=== PATIENT | male | born 1955 | race Caucasian/White ===

== ENCOUNTER 2018-10-04 05:22 | Emergency (ER) | payer OTHER, MEDICARE ==
[~2018-10-04] VITALS: Ht 172.7 cm; Wt 111.1 kg
[2018-10-04] MEDS ORDERED: CRESTOR10 MG PO (05:47)
[2018-10-04] MEDS ORDERED: LIDOCAINE 2% 20 ML VIAL. ONE (05:52)
[2018-10-04] MEDS ORDERED: MORPHINE SULFATE 4 MG/ML DISP.SYRIN. ONE (05:53)
[2018-10-04] MEDS ORDERED: HYDR1TAB12 PO (06:07)
[2018-10-04] MEDS ORDERED: IBUP800T19 PO (06:07)
--- NOTE | 2018-10-04 06:11 | PHYS DOC ---
Adult General Chief Complaint Chief Complaint shoulder pain HPI HPI 63 years old presented to the emergency department after a fall complaining of left shoulder pain upon arrival shoulder looked deformed Review of Systems Review of Systems Constitutional: Denies fever or chills [] Eyes: Denies change in visual acuity, redness, or eye pain [] HENT: Denies nasal congestion or sore throat [] Respiratory: Denies cough or shortness of breath [] Cardiovascular: No additional information not addressed in HPI [] GI: Denies abdominal pain, nausea, vomiting, bloody stools or diarrhea [] : Denies dysuria or hematuria [] Musculoskeletal: Denies back pain Integument: Denies rash or skin lesions [] Neurologic: Denies headache, focal weakness or sensory changes [] Endocrine: Denies polyuria or polydipsia [] All other systems were reviewed and found to be within normal limits, except as documented in this note. Current Medications Current Medications Current Medications Medications (Trade) Dose Ordered Sig/Lalo Start Time Stop Time Status Last Admin Dose Admin Lidocaine HCl 20 ml STK-MED ONCE 10/04/18 05:52 10/04/18 05:53 DC Morphine Sulfate (Morphine 4mg Syringe) 4 mg STK-MED ONCE 10/04/18 05:53 10/04/18 05:54 DC Allergies Allergies Allergies Coded Allergies Type Severity Reaction Last Updated Verified Penicillins Allergy Severe Hives 10/04/18 Yes Physical Exam Physical Exam Constitutional: Well developed, well nourished, no acute distress, non-toxic appearance. [] HENT: Normocephalic, atraumatic, bilateral external ears normal, oropharynx moist, no oral exudates, nose normal. [] Eyes: PERRLA, EOMI, conjunctiva normal, no discharge. [] Neck: Normal range of motion, no tenderness, supple, no stridor. [] Cardiovascular:Heart rate regular rhythm, no murmur [] Lungs & Thorax: Bilateral breath sounds clear to auscultation [] Abdomen: Bowel sounds normal, soft, no tenderness, no masses, no pulsatile masses. [] Skin: Warm, dry, no erythema, no rash. [] Back: No tenderness, no CVA tenderness. [] Extremities: No tenderness, no cyanosis, no clubbing, dislocated left shoulder Neurologic: Alert and oriented X 3, normal motor function, normal sensory function, no focal deficits noted. [] Psychologic: Affect normal, judgement normal, mood normal. [] Current Patient Data Vital Signs Vital Signs Date Time Temp Pulse Resp B/P (MAP) Pulse Ox O2 Delivery O2 Flow Rate FiO2 10/04/18 05:25 98.1 53 18 98 Room Air EKG EKG [] Radiology/Procedures Radiology/Procedures [] Course & Med Decision Making Course & Med Decision Making Dislocated left shoulder 10 mL of 2% lidocaine injected in that left shoulder reduced without any complication [] Final Impression Final Impression [] Problems: (1) Dislocation of left shoulder joint Qualifiers: Qualified Codes: S43.005A - Unspecified dislocation of left shoulder joint, initial encounter Dragon Disclaimer Dragon Disclaimer This electronic medical record was generated, in whole or in part, using a voice recognition dictation system. ELSIE HENRIQUEZ MD Oct 04, 2018 06:11
[2018-10-04] MEDS ORDERED: LIDOCAINE 2% 20 ML VIAL. IJ ONE (06:30)
[2018-10-04] MEDS ORDERED: MORPHINE SULFATE 4 MG/ML DISP.SYRIN. IV ONE (06:30)
[2018-10-04 06:41] VITALS: BP 129/84
--- NOTE | 2018-10-04 06:48 | RAD ---
SHOULDER 2+V LEFT Clinical Indication: left shoulder injury, fall, pain Comparison: None. Findings: There is anterior subcoracoid humeral head dislocation in relation to the glenoid. No acute fracture is identified. Acromioclavicular joint is intact. The left upper lung is clear. Soft tissues unremarkable. IMPRESSION: Anterior subcoracoid shoulder dislocation. Electronically signed by: Michael Avalos MD (10/04/2018 6:44 AM) [id number]
--- NOTE | 2018-10-04 06:49 | RAD ---
SHOULDER 2+V LEFT Clinical Indication: post reduction Comparison: Left shoulder, 2 views, earlier same day. Impression: Successful reduction of anterior subcoracoid dislocation. Acute traumatic Hill-Sachs fracture is not excluded. Left lung is clear. Electronically signed by: Michael Avalos MD (10/04/2018 6:46 AM) [facility]
== END 2018-10-04 06:52 | disposition home or self-care (01) ==
LOC: ER 05:22
DX: S43.085A Other dislocation of left shoulder joint, initial encounter (principal); Z88.0 Allergy status to penicillin; W01.0XXA Fall on same level from slipping, tripping and stumbling without subsequent striking against object, initial encounter; Y93.K1 Activity, walking an animal; Y92.89 Other specified places as the place of occurrence of the external cause; Y99.8 Other external cause status
CPT/HCPCS: 23650; 73030; 96374; 99285; J2270; J2001

== ENCOUNTER → 2021-04-10 | Outpatient (CLI) | payer MEDICARE, OTHER ==
[~2021-04-10] MED LIST: CRESTOR10 MG PO; HYDR1TAB13 PO; IBUP800T19 PO
--- NOTE | 2021-04-10 16:38 | RAD ---
Indications: Left scapular pain. Mass of the left shoulder region. Three-view left shoulder study: No acute fracture or dislocation or lytic process is seen. There is a deformity of the lateral aspect of the greater tubercle consistent with an old healed fracture here. No AC joint separation is seen. 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 No signif icant joint space narrowing or spurring of the left glenohumeral joint is seen. However, there is a s mall traction spur of the inferior medial aspect of the humeral head. 2 view study of the left scapula: No fracture or lytic process is seen. No soft tissue calcification is evident. IMPRESSION: There is a deformity of the lateral aspect of the greater tubercle consistent with an old healed fracture. This could be related to the previous glenohumeral joint dislocation as seen on Sep i.e. Hill-Sachs deformity. Otherwise no acute osseous abnormality is seen. With regard to any mass in the left shoulder, MRI study may be helpful for further evaluation. Evaluation for sof t tissue mass is difficult with CR radiography. Electronically signed by: Liam Quinteros MD (04/10/2021 4:35 PM) [id number]
== END ==
LOC: RAD 15:15
PROVIDERS: ATTEND Family Medicine
DX: M21.822 Other specified acquired deformities of left upper arm (principal)
CPT/HCPCS: 73010; 73030

== ENCOUNTER 2021-06-06 23:52 | Emergency (ER) | payer MEDICARE, OTHER ==
[~2021-06-06] VITALS: Ht 172.7 cm; Wt 116.0 kg
--- NOTE | 2021-06-07 00:05 | PHYS DOC ---
Past History Past Medical History: Cancer, High Cholesterol Past Surgical History: No Surgical History Alcohol Use: Occasionally Drug Use: None General Adult HPI: HPI: ".. I just got chemo.. for my Lt. shoulder today...." Patient is a 65 year old male who presents with above hx and complaints of shakes , dizzy, chills and fever. Patient currently under chemotherapy on Tuesdays and at . 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 The patient follows with Dr. Walker at for oncology treatment. No recent travel. No specific ill contacts. Has received Covid vaccination. Patient has been compliant with meds. Pt. primary is Dr. Dunbar Follows with Dr Dunbar as primary. Review of Systems: Review of Systems: Constitutional: Complains of fever or chills. Complains of malaise Eyes: Denies change in visual acuity HENT: Denies nasal congestion or sore throat Respiratory: Denies cough or shortness of breath Cardiovascular: Denies chest pain or edema GI: Denies abdominal pain, nausea, vomiting, bloody stools or diarrhea : Denies dysuria Musculoskeletal: Denies back pain or joint pain Integument: Denies rash Neurologic: Denies headache, focal weakness or sensory changes. Complains of dizziness Endocrine: Denies polyuria or polydipsia Lymphatic: Denies swollen glands Psychiatric: Denies depression or anxiety Family History: Family History: Noncontributory to presentation Current Medications: Current Meds: See nursing for home meds Allergies: Allergies: Allergies Coded Allergies Type Severity Reaction Last Updated Verified Penicillins Allergy Severe Hives 10/04/18 Yes Physical Exam: PE: Constitutional: Moderate acute distress, non-toxic appearance. [] HENT: Normocephalic, atraumatic, bilateral external ears normal, oropharynx moist, no oral exudates, nose normal. [] Eyes: PERRLA, EOMI, conjunctiva normal, no discharge. [] Neck: Normal range of motion, no tenderness, supple, no stridor. [] Cardiovascular: Tachycardia heart rate regular rhythm, no murmur [] Lungs & Thorax: Bilateral breath sounds equal at apex with some basilar crackles on auscultation [] port on right chest wall Abdomen: Bowel sounds normal, soft, no tenderness, no masses, no pulsatile masses. [] Skin: Warm, dry, no erythema, no rash. [] Back: No tenderness, no CVA tenderness. [] Extremities: No tenderness, no cyanosis, no clubbing, ROM intact, no edema. [] Mass on left shoulder. No cording appreciated Neurologic: Alert and oriented X 3, normal motor function, normal sensory function, no focal deficits noted. [] Psychologic: Affect anxious, judgement normal, mood normal. [] EKG: EKG: My interpretation EKG shows a sinus tachycardia 120 bpm. Occasional PAC. No findings acute STEMI of contralateral changes. EKG time was 00 45 minutes [] My interpretation EKG #2 shows a sinus rhythm at 100 bpm. No acute morphology. Time of EKG is 004 3 minutes. Radiology/Procedures: Radiology/Procedures: My interpretation of chest x-ray shows some basilar linear atelectasis. Report on right. Mass in left shoulder. [] Heart Score: C/O Chest Pain: No HEART Score for Chest Pain: HEART Score for Chest Pain Response (Comments) Value History Slighlty/Non-Suspicious 0 ECG Normal 0 Age > 65 2 Risk Factors 1 or 2 Risk Factors 1 Troponin < Normal Limit 0 Total 3 Risk Factors: Risk Factors: DM, Current or recent (<one month) smoker, HTN, HLP, family h istory of CAD, obesity. Risk Scores: Score 0 - 3: 2.5% MACE over next 6 weeks - Discharge Home Score 4 - 6: 20.3% MACE over next 6 weeks - Admit for Clinical Observation Score 7 - 10: 72.7% MACE over next 6 weeks - Early Invasive Strategies Course & Med Decision Making: Course & Med Decision Making Pertinent Labs and Imaging studies reviewed. (See chart for details) Discussed presentation, testing and tx. plan with transfer at 0200 hrs. They are reviewing his file and will call back. transfer called back, and I discussed presentation, testing and tx plan with Dr. Walker- his oncology physician at . Advised addition 2 liters of fluid and 50 mg of methylene blue IV. Patient to call in morning for follow-up. Pt. ambulatory at discharge and reports he feels much better. O530 hrs Will continue with Cipro 500 bid. Pt. keep follow up with oncology today. Impression: 1. Fever 2. On Chemotherapy- Doxorubicin, Ifosfamide, [place], and Pegfilgrastim protocol.- For left shoulder pleomorphic sarcoma. 3. Elevated crp= 209 4. Malnutrition- Albumin 1.7 5. Anemia Hgb. 10.7 microcytic-77 6. Thrombocytosis 424 7. Hypomagnesium 1.7 [] Dragon Disclaimer: Dragsaranya Disclaimer: This electronic medical record was generated, in whole or in part, using a voice recognition dictation system. Departure Departure: Referrals: SHIRA DUNBAR MD (PCP) Scripts Ciprofloxacin (CIPRO) 500 Mg/[address] [facility].rec 500 MG PO BID for fever for 7 Days, MISC Prov: BASILIO NEWTON MD 06/07/21 [employer] Disclaimer This chart was dictated in whole or in part using Voice Recognition software in a busy, high-work load, and often noisy Emergency Department environment. It may contain unintended and wholly unrecognized errors or omissions. BASILIO NEWTON MD Jun 07, 2021 00:05
[2021-06-07] MEDS ORDERED: IV RINGERS SOLUTION,LACTATED 1,000 ML IV SCH (00:15)
[2021-06-07] MEDS ORDERED: VANCOMYCIN 1 GM in IV NORMAL SALINE 250ML 250 ML IV ONE (00:15)
[2021-06-07] MEDS ORDERED: VANCOMYCIN 1 GM VIAL. ONE (00:39)
[2021-06-07] MEDS ORDERED: IV NORMAL SALINE 250ML 250 ML ONE (00:39)
[2021-06-07] MEDS ORDERED: ACETAMINOPHEN 500 MG TABLET PO ONE (01:30)
[2021-06-07 01:35] LABS: BASO # 0.1 x10^3/uL (0.0-0.2); BASO % 1 % (0-3); EOS % 0 % (0-3); HEMATOCRIT 32.1 % (39.0-53.0); HEMOGLOBIN 10.7 g/dL (13.0-17.5); LYMPH % 10 % (24-48); MEAN CORPUSCULAR HEMOGLOBIN 26 pg (25-35); MEAN CORPUSCULAR HGB CONC 33 g/dL (31-37); MEAN CORPUSCULAR VOLUME 77 fL (79-100); MONO # 0.3 x10^3/uL (0.0-1.1); MONO % 3 % (0-9); NEUT # 8.2 x10^3uL (1.8-7.7); NEUT % 86 % (31-73); PLATELET COUNT 424 x10^3/uL (140-400); RED BLOOD COUNT 4.19 x10^6/uL (4.30-5.70); WHITE BLOOD COUNT 9.5 x10^3/uL (4.0-11.0)
[2021-06-07 01:42] LABS: CALCIUM 8.4 mg/dL (8.5-10.1); CREATININE 0.9 mg/dL (0.7-1.3); GFR 84.2; POTASSIUM 4.2 mmol/L (3.5-5.1)
[2021-06-07] MEDS ORDERED: levoFLOXacin 500 MG TABLET PO ONE (01:45)
[2021-06-07 01:54] LABS: INFLUENZA A PATIENT NEGATIVE (NEGATIVE); INFLUENZA B PATIENT NEGATIVE (NEGATIVE)
[2021-06-07 01:55] LABS: ALBUMIN 1.7 g/dL (3.4-5.0); DIRECT BILIRUBIN 0.1 mg/dL (0.0-0.2); MAGNESIUM 1.7 mg/dL (1.8-2.4); TOTAL BILIRUBIN 0.4 mg/dL (0.2-1.0); TOTAL PROTEIN 5.4 g/dL (6.4-8.2)
[2021-06-07] MEDS ORDERED: IV RINGERS SOLUTION,LACTATED 1,000 ML IV ONE (02:45)
[2021-06-07] MEDS ORDERED: IV NORMAL SALINE 1,000ML 1,000 ML IV ONE (03:00)
[2021-06-07] MEDS ORDERED: METHYLENE BLUE 0.5% IJ ONE (03:00)
[2021-06-07] MEDS ORDERED: IV DEXTROSE 5% 50 ML IV ONE (03:00)
[2021-06-07 03:05] LABS: BILIRUBIN,URINE NEG (NEG); CLARITY,URINE CLEAR; COLOR,URINE YELLOW; GLUCOSE,URINE NEG (NEG); NITRITE,URINE NEG (NEG); UROBILINOGEN,URINE 0.2 mg/dL (0.2 mg/dL)
[2021-06-07 03:06] LABS: BACTERIA,URINE 0 /HPF (0-FEW)
[2021-06-07] MEDS ORDERED: MAGNESIUM SULFATE 1GM 100 ML IV ONE (03:30)
[2021-06-07 05:00] VITALS: BP 147/81
--- NOTE | 2021-06-07 05:13 | EKG ---
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
--- NOTE | 2021-06-07 05:13 | EKG ---
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
[2021-06-07] MEDS ORDERED: CIPR500S2 PO (05:37)
--- NOTE | 2021-06-07 06:21 | RAD ---
EXAM: CHEST 1 VIEW History: Fever COMPARISON: None available. TECHNIQUE: Single portable radiograph of the chest FINDINGS: The cardiac silhouette is unremarkable. Right-sided central line identified. Mild bibasila r lung airspace opacities likely atelectasis or infiltrates. IMPRESSION: Mild bibasilar lung airspace opacities likely atelectasis or infiltrates. Electronically signed by: Koko Zhang MD (06/07/2021 6:19 AM) [id number]
[2021-06-08] MEDS ORDERED: CEFP200T PO (14:14)
== END 2021-06-07 05:41 | disposition home or self-care (01) ==
LOC: ER 23:52
DX: C76.42 Malignant neoplasm of left upper limb (principal); R79.82 Elevated C-reactive protein (CRP); E46 Unspecified protein-calorie malnutrition; Z68.38 Body mass index [BMI] 38.0-38.9, adult; D64.9 Anemia, unspecified; D47.3 Essential (hemorrhagic) thrombocythemia; E83.42 Hypomagnesemia; E78.00 Pure hypercholesterolemia, unspecified; Z20.822 Contact with and (suspected) exposure to COVID-19; Z88.0 Allergy status to penicillin
CPT/HCPCS: 36415; 71045; 80048; 80076; 81001; 82550; 83605; 83690; 83735; 83880; 84443; 84484; 85025; 86140; 87040; 87205; 87804; 93005; 96361; 96365; 96367; 99285; C9803; J3370; J3475; J7030; J7050; J7120; U0003

== ENCOUNTER 2021-06-08 09:35 | Emergency (ER) | payer MEDICARE, OTHER ==
[~2021-06-08] VITALS: Ht 172.7 cm; Wt 118.8 kg
[~2021-06-08 09:35] MED LIST changes: +CIPR500S2 PO
[2021-06-08 10:09] LABS: BASO # 0.2 x10^3/uL (0.0-0.2); BASO % 1 % (0-3); EOS % 0 % (0-3); HEMATOCRIT 29.8 % (39.0-53.0); HEMOGLOBIN 9.6 g/dL (13.0-17.5); LYMPH # 0.6 x10^3/uL (1.0-4.8); LYMPH % 2 % (24-48); MEAN CORPUSCULAR HEMOGLOBIN 25 pg (25-35); MEAN CORPUSCULAR HGB CONC 32 g/dL (31-37); MEAN CORPUSCULAR VOLUME 77 fL (79-100); MONO # 0.1 x10^3/uL (0.0-1.1); MONO % 0 % (0-9); NEUT # 26.6 x10^3uL (1.8-7.7); NEUT % 97 % (31-73); PLATELET COUNT 393 x10^3/uL (140-400); RED BLOOD COUNT 3.88 x10^6/uL (4.30-5.70); WHITE BLOOD COUNT 27.5 x10^3/uL (4.0-11.0)
--- NOTE | 2021-06-08 11:16 | EKG ---
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
[2021-06-08 11:31] LABS: CALCIUM 8.8 mg/dL (8.5-10.1); GFR 74.5; POTASSIUM 3.4 mmol/L (3.5-5.1)
[2021-06-08 11:41] LABS: ALBUMIN 1.6 g/dL (3.4-5.0); ALBUMIN/GLOBULIN RATIO 0.3 (1.0-1.7); MAGNESIUM 2.1 mg/dL (1.8-2.4); PHOSPHORUS 2.4 mg/dL (2.6-4.7); TOTAL BILIRUBIN 0.5 mg/dL (0.2-1.0); TOTAL PROTEIN 6.7 g/dL (6.4-8.2)
[2021-06-08 11:56] LABS: BILIRUBIN,URINE NEG (NEG); CLARITY,URINE CLEAR; COLOR,URINE YELLOW; GLUCOSE,URINE NEG (NEG); NITRITE,URINE NEG (NEG); UROBILINOGEN,URINE 0.2 mg/dL (0.2 mg/dL)
--- NOTE | 2021-06-08 11:56 | PHYS DOC ---
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 Tinajero (cardiac rehabilitation specialist for pts' oncologist, Dr. Walker), concern for 1 of 2+ blood cultures growing staph in clusters. Patient was seen in the ED 2 days ago, June 06, temperature 100, with chest x-ray showing questionable infiltrates. ED physician spoke to Dr. Walker who recommended IV methylene blue, concern for chemo adverse effect from ifosfamide toxicity. Patient was prescribed Cipro 500 twice daily but has not refilled the medication. No neutropenia on 06/06. In ED patient with no active complaints, frequently asking nurse if he can be discharged. Review of Systems: Review of Systems: Constitutional: Denies fever or chills Eyes: Denies change in visual acuity HENT: Denies nasal congestion or sore throat Respiratory: Denies cough or shortness of breath Cardiovascular: Denies chest pain or edema GI: Denies abdominal pain, nausea, vomiting, bloody stools or diarrhea : Denies dysuria or hematuria Musculoskeletal: Denies back pain or joint pain Integument: Denies rash or diaphoresis Neurologic: Denies headache or neck stiffness Endocrine: Denies polyuria or polydipsia Lymphatic: Denies swollen glands Psychiatric: Denies depression or anxiety Allergies: Allergies: Allergies Coded Allergies Type Severity Reaction Last Updated Verified Penicillins Allergy Severe Hives 06/07/21 Yes Physical Exam: PE: Constitutional: Well developed, well nourished, no acute distress, non-toxic appearance, sleeping comfortably in ED stretcher HENT: Normocephalic, atraumatic, right upper chest wall Acosta catheter in place with no purulent drainage, normal-appearing swelling skin Eyes: EOMI, conjunctiva normal, no discharge. Neck: Normal range of motion, supple, Cardiovascular: S1/2 present, regular rhythm Lungs & Thorax: Speaking in full sentences, bilateral equal chest rise, no tachypnea or increased work of breathing Abdomen: soft, no tenderness, Skin: Warm, dry, no erythema, no rash. [] Back: No tenderness, no CVA tenderness. [] Extremities: No tenderness, no cyanosis, Neurologic: Alert and oriented X 3, normal motor function, normal sensory function, no focal deficits noted. [] Psychologic: Affect normal, judgement normal, mood normal. [] Current Patient Data: Labs: Laboratory Tests Test 06/08/21 09:56 06/08/21 10:56 White Blood Count 27.5 x10^3/uL (4.0-11.0) H Red Blood Count 3.88 x10^6/uL (4.30-5.70) L Hemoglobin 9.6 g/dL (13.0-17.5) L Hematocrit 29.8 % (39.0-53.0) L Mean Corpuscular Volume 77 fL (79-100) L Mean Corpuscular Hemoglobin 25 pg (25-35) Mean Corpuscular Hemoglobin Concent 32 g/dL (31-37) Red Cell Distribution Width 16.0 % (11.5-14.5) H Platelet Count 393 x10^3/uL (140-400) Neutrophils (%) (Auto) 97 % (31-73) H Lymphocytes (%) (Auto) 2 % (24-48) L Monocytes (%) (Auto) 0 % (0-9) Eosinophils (%) (Auto) 0 % (0-3) Basophils (%) (Auto) 1 % (0-3) Neutrophils # (Auto) 26.6 x10^3uL (1.8-7.7) H Lymphocytes # (Auto) 0.6 x10^3/uL (1.0-4.8) L Monocytes # (Auto) 0.1 x10^3/uL (0.0-1.1) Eosinophils # (Auto) 0.0 x10^3/uL (0.0-0.7) Basophils # (Auto) 0.2 x10^3/uL (0.0-0.2) Platelet Estimate Pending Sodium Level 134 mmol/L (136-145) L Potassium Level 3.4 mmol/L (3.5-5.1) L Chloride Level 101 mmol/L (98-107) Carbon Dioxide Level 23 mmol/L (21-32) Anion Gap 10 (6-14) Blood Urea Nitrogen 21 mg/dL (8-26) Creatinine 1.0 mg/dL (0.7-1.3) Estimated GFR (Cockcroft-Gault) 74.5 BUN/Creatinine Ratio 21 (6-20) H Glucose Level 106 mg/dL (70-99) H Lactic Acid Level 1.2 mmol/L (0.4-2.0) Calcium Level 8.8 mg/dL (8.5-10.1) Phosphorus Level 2.4 mg/dL (2.6-4.7) L Magnesium Level 2.1 mg/dL (1.8-2.4) Total Bilirubin 0.5 mg/dL (0.2-1.0) Aspartate Amino Transferase (AST) 17 U/L (15-37) Alanine Aminotransferase (ALT) 20 U/L (16-63) Alkaline Phosphatase 125 U/L (46-116) H Troponin I Quantitative < 0.017 ng/mL (0-0.055) Total Protein 6.7 g/dL (6.4-8.2) Albumin 1.6 g/dL (3.4-5.0) L Albumin/Globulin Ratio 0.3 (1.0-1.7) L Lipase 64 U/L (73-393) L Vital Signs: Vital Signs Date Time Temp Pulse Resp B/P (MAP) Pulse Ox O2 Delivery O2 Flow Rate FiO2 06/08/21 10:24 109 172/86 98 06/08/21 10:18 20 Room Air EKG: EKG: [] Radiology/Procedures: Radiology/Procedures: IMAGING REPORT Signed PATIENT: BRETT RODRIGUEZ ACCOUNT: [id number] : 1955 LOCATION: ER AGE: 65 SEX: M EXAM STATUS: REG ER ORD. PHYSICIAN: MERCEDEZ STODDARD DO REASON: infiltrate? PROCEDURE: CT CHEST WO CONTRAST EXAMINATION: CT Chest Without IV contrast. INDICATION:65 years, Male, infiltrates. COMPARISON: None. TECHNIQUE: Spiral CT was obtained from the jugular notch through the posterior costophrenic recess. 3-D MIPS, sagittal and coronal reformats were obtained. Exposure: One or more of the following individualized dose reduction techniques were utilized for this examination: 1. Automated exposure control 2. Adjustment of the mA and/or kV according to patient size 3. Use of iterative reconstruction technique. FINDINGS: LUNGS/PLEURA: Central airways are patent. Dependent subsegmental atelectasis versus scarring. Scattered pleural-based scarring in the posterior upper lobes. No focal consolidation, pleural effusion or pneumothorax. No suspicious pulmona ry nodule.. MEDIASTINUM: No pathologic mediastinal or hilar adenopathy. The thoracic aorta and pulmonary arteries are normal in caliber. The heart is normal in size. No pericardial effusion. Mild calcified coronary atherosclerosis. There is a 1.3 cm right thyroid nodule. Esophagus is unremarkable. Right IJ central venous catheter terminates in the distal SVC. AXILLA/SOFT TISSUE: No supraclavicular or axillary adenopathy. There is a large heterogeneous soft tissue mass along the left lateral chest wall extends from the axilla to the level of the posterior ninth rib, measures 20.8 x 14.1 cm. This mass is seen on radiograph dated 04/10/2021 UPPER ABDOMEN: Small hiatal hernia. BONES: No evidence of acute fractures or aggressive osseous lesions. IMPRESSION: 1. No evidence of focal consolidation. 2. Heterogeneous 20 cm soft tissue mass along the left lateral chest wall soft tissue extends from the axilla to the level of posterior ninth rib, suggesting of hematoma. Other differential consideration is soft tissue neoplasm. This lesion is seen on radiograph dated 04/10/2021. Clinical correlation is advised and recommend ultrasound to assess for internal vascularity. 3. There is a 1.3 cm right thyroid nodule. Incidental thyroid nodule measuring 1 - 1.4 cm in patient age >=35. Further evaluation with thyroid ultrasound could be performed at discretion of ordering provider. Recommendation for patients with normal life expectancy per ACR White Paper on incidental thyroid nodules (JACR 2015 ;12:143-150). Electronically signed by: Felice Burks MD (06/08/2021 12:44 PM) [id number] DICTATED AND SIGNED BY: FELICE BURKS MD DATE: 06/08/21 1231 CC: SHIRA TAVERAS MD; MERCEDEZ STODDARD DO ~MTH0 0 Heart Score: C/O Chest Pain: No Risk Factors: Risk Factors: DM, Current or recent (<one month) smoker, HTN, HLP, family history of CAD, obesity. Risk Scores: Score 0 - 3: 2.5% MACE over next 6 weeks - Discharge Home Score 4 - 6: 20.3% MACE over next 6 weeks - Admit for Clinical Observation Score 7 - 10: 72.7% MACE over next 6 weeks - Early Invasive Strategies Course & Med Decision Making: Course & Med Decision Making Pertinent Labs and Imaging studies reviewed. (See chart for details) Concern for fever 2 todays ago, pt not neutropenic but on chemo with recent Neupogen injection which could explain the elevation. Pt afebrile and well appearing, no signs/sxs of infection. CT performed- no pneumonia. 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 I spoke with Dr. Jim (cardiac rehabilitation specialist for Dr. Walker) and later spoke to Dr. Walker. 2 cultures were drawn from Acosta port site 2 days ago, wound culture growing gram-positive cocci in cluster. Today wound culture was drawn from port site and the culture was drawn from peripheral site. Dr. Walker recommend patient continue antibiotics for gram-positive coverage (vanco and rocephin given in ED). No allergic reaction to Rocephin in ED. Dr. Walker recommends discharge home (I agree) given well-appearing exam. Pt reliable and agrees with strict ED return precautions were given for flulike symptoms, fever, chills, rigors or diaphoresis-daughter listening on cell phone and states "See, you have to come back if you feel worse." Pt understands urgent ED return to patient receiving a call backs regarding lab results. Pt also understands if repeat blood culture from Acosta catheter is positive, catheter will need to be removed, per Dr. Walker. Encouraged urgent outpatient follow-up with PMD and oncology on Thursday. Life-threatening processes were considered but are low suspicion at this time, given history, physical exam and ED workup. Pt was educated on all prescription medications and adverse effects. All patient's questions were answered and pt was stable at time of discharge. Life/limb-threatening differential includes but is not limited to, surgical abdomen (appendicitis, cholecystitis, diverticulitis, inflammatory bowel dise ase, abscess, perforation), meningitis, encephalitis, Venkata's angina, endocarditis, myocarditis, life-threatening rash (necrotizing fasciitis), gynecologic and urologic emergencies (endometritis, ovarian/testicular torsion, TOA, obstructive nephropathy, prostatitis), head and neck abscess, infection concerning for sepsis or shock, or respiratory failure. I have spoken with the patient and/or caregivers. I explained the patient's condition, diagnoses and treatment plan based on the information available to me at this time. I have answered the patient and/or caregiver's questions and addressed any concerns. The patient and/or caregivers have a good understanding of patient's diagnosis, condition and treatment plan as can be expected at this point. Vital signs have been stable. Patient's condition is stable and appropriate for discharge from the emergency department. Patient will pursue further outpatient evaluation with primary care physician or other designated or consulting physician as outlined in the discharge instructions. The patient and/or caregivers are agreeable to this plan of care and follow-up instructions have been explained in detail. The patient and/or caregivers have received these instructions in written form and have expressed an understanding of the discharge instructions. The patient and/or caregivers are aware that any significant change of condition or worsening of symptoms should prompt immediate return to this or the closest emergency department or call to 911. [employer] Disclaimer: Dragsaranya Disclaimer: This electronic medical record was generated, in whole or in part, using a voice recognition dictation system. Departure Departure: Impression: Primary Impression: Positive blood culture Additional Impression: Afebrile Disposition: HOME / SELF CARE / HOMELESS Condition: STABLE Referrals: SHIRA TAVERAS MD (PCP) In 1 to 2 days for reevaluation, return to ER immediately if you develop any fever, chills or flulike symptoms Patient Instructions: Bacteremia, Blood Culture Additional Instructions: FOLLOW UP WITH DR. WALKER ON THURSDAY Scripts Cefpodoxime Proxetil (CEFPODOXIME PROXETIL) 200 Mg Tablet 1 TAB PO BID for POSITIVE BLOOD CULTURE for 7 Days, #14 TAB TAKE UNTIL NEGATIVE BLOOD CULTURES ARE RESULTED Prov: MERCEDEZ STODDARD DO 06/08/21 MERCEDEZ STODDARD DO Jun 08, 2021 11:56
[2021-06-08 11:57] LABS: BACTERIA,URINE 0 /HPF (0-FEW); GRANULAR CASTS,URINE FEW /HPF
--- NOTE | 2021-06-08 12:46 | RAD ---
EXAMINATION: CT Chest Without IV contrast. INDICATION:65 years, Male, infiltrates. COMPARISON: None. TECHNIQUE: Spiral CT was obtained from the jugular notch through the posterior costophrenic recess. 3 -D MIPS, sagittal and coronal reformats were obtained. Exposure: One or more of the following individualized dose reduction techniques were utilized for thi s examination: 1. Automated exposure control 2. Adjustment of the mA and/or kV according to patient size 3. Use of iterative reconstruction technique. FINDINGS: LUNGS/PLEURA: Central airways are patent. Dependent subsegmental atelectasis versus scarring. Scatter ed pleural-based scarring in the posterior upper lobes. No focal consolidation, pleural effusion or p neumothorax. No suspicious pulmonary nodule.. MEDIASTINUM: No pathologic mediastinal or hilar adenopathy. The thoracic aorta and pulmonary arteries are normal in caliber. The heart is normal in size. No pericardial effusion. Mild calcified coronary atherosclerosis. There is a 1.3 cm right thyroid nodule. Esophagus is unremarkable. Right IJ central venous catheter terminates in the distal SVC. AXILLA/SOFT TISSUE: No supraclavicular or axillary adenopathy. There is a large heterogeneous soft ti ssue mass along the left lateral chest wall extends from the axilla to the level of the posterior gala th rib, measures 20.8 x 14.1 cm. This mass is seen on radiograph dated 04/10/2021 UPPER ABDOMEN: Small hiatal hernia. BONES: No evidence of acute fractures or aggressive osseous lesions. IMPRESSION: 1. No evidence of focal consolidation. 2. Heterogeneous 20 cm soft tissue mass along the left lateral chest wall soft tissue extends from th e axilla to the level of posterior ninth rib, suggesting of hematoma. Other differential consideratio n is soft tissue neoplasm. This lesion is seen on radiograph dated 04/10/2021. Clinical correlation is advised and recommend ultrasound to assess for internal vascularity. 3. There is a 1.3 cm right thyroid nodule. Incidental thyroid nodule measuring 1 - 1.4 cm in patient age >=35. Further evaluation with thyroid ultrasound could be performed at discretion of ordering pro vider. Recommendation for patients with normal life expectancy per ACR White Paper on incidental thyroid nod ules (JACR 2015 ;12:143-150). Electronically signed by: Radha Burks MD (06/08/2021 12:44 PM) [id number]
[2021-06-08 12:51] VITALS: BP 162/82
[2021-06-08] MEDS ORDERED: VANCOMYCIN PER PHARMACY MC PRN (13:00)
[2021-06-08] MEDS ORDERED: cefTRIAXone SODIUM 1 GM VIAL ONE (13:20)
[2021-06-08] MEDS ORDERED: IV NORMAL SALINE 50ML 50 ML ONE (13:20)
[2021-06-08] MEDS ORDERED: VANCOMYCIN 2 GM in IV NORMAL SALINE 500ML 500 ML IV ONE (13:30)
[2021-06-08] MEDS ORDERED: CEFP200T PO (14:14)
[2021-06-08 17:23] LABS: % ATYL 1 % (0-0); % BANDS 4 % (0-9); % LYMPHS 5 % (24-48); % SEGS 90 % (35-66)
[2021-06-08 17:24] LABS: PLT ESTIMATE ADEQUATE (ADEQUATE)
== END 2021-06-08 16:15 | disposition home or self-care (01) ==
LOC: ER 09:35
DX: R78.81 Bacteremia (principal); E78.5 Hyperlipidemia, unspecified; Z88.0 Allergy status to penicillin
CPT/HCPCS: 36415; 71250; 80053; 81001; 83605; 83690; 83735; 84100; 84484; 85007; 85025; 87040; 93005; 96365; 96366; 96367; 99285; J0696; J3370; J7040